=== PATIENT | female | born 1980 | race Two or more races ===

== ENCOUNTER 2019-11-23 18:09 | Emergency (ER) | payer OTHER ==
[~2019-11-23] VITALS: Ht 182.9 cm; Wt 65.8 kg
--- NOTE | 2019-11-23 18:15 | NUR ---
"was having sex around 4pm - post orgasm started having bad HOFFMANN on R side- blurred vision-feel dizzy/weird/lightheaded" Patient a/ox4, breathing even and unlabored, no sob noted, ambulatory with steady gait, changed into gown and gave a urine sample.
--- NOTE | 2019-11-23 19:17 | NUR ---
Patient is resting comfortably in bed. Easily aroused. VSS.
[2019-11-23] MEDS ORDERED: IBUPROFEN 600 MG TABLET PO ONE ×2 (20:22→20:30)
--- NOTE | 2019-11-23 20:23 | NUR ---
Patient is resting comfortably in bed. Easily aroused. VSS.
[2019-11-23 20:29] VITALS: BP 128/86
--- NOTE | 2019-11-23 20:29 | NUR ---
Patient discharged to home in stable condition. Written and verbal after care instructions given. Patient verbalizes understanding of instruction and RX. vss. Ambulated with steady gait. Denies pain.
== END 2019-11-23 20:29 | disposition home or self-care (01) ==
LOC: ER 18:09
DX: R51 Headache (principal); I10 Essential (primary) hypertension; J45.909 Unspecified asthma, uncomplicated; Z41.1 Encounter for cosmetic surgery; Z98.890 Other specified postprocedural states; Z60.2 Problems related to living alone
CPT/HCPCS: 70450; 84703; 99284; A6403